=== PATIENT | female | born 1975 | race Caucasian/White ===

== ENCOUNTER 2022-11-01 11:35 | Outpatient (OUT) | payer OTHER, SELFPAY ==
--- NOTE | 2022-11-01 11:44 | MM_ITS ---
Patient: JENIFFER HUA Exam Date: 11/01/2022 : 1975 Gender:F Ordering : DR YESSENIA MUNOZ . Admission #: [id number] Family : Order #: [id number] CLICK HERE TO VIEW EXAM RADIOLOGY REPORT PROCEDURE: MM TOMOSYNTHESIS SCREENING BI COMPARISON: [facility] MAMM SCREEN 3D [facility]CTOR [facility]UEL CAD, 01/17/2021. MG MAMM SCREEN VICTOR MANUEL W CAD, 05/22/2018. INDICATIONS: Screening mammogram Z12.31 Calculator Name NCI Breast Cancer Risk Assessment Tool 5 Year Breast Cancer Risk 1.00% Lifetime Breast Cancer Risk 10.30% Personal Breast Cancer No Personal Ovarian Cancer No Treatments None Family Cancers None LOCATION: [facility] BREAST COMPOSITION: Scattered areas fibroglandular density. FINDINGS: DIAGNOSTIC CATEGORY 1--NEGATIVE. NO CHANGE FROM COMPARISON ASSESSMENT. Scattered benign-appearing nodules are present. Scattered benign-appearing calcifications are present. Scattered benign-appearing lymph nodes are present. RIGHT BREAST: No significant suspicious finding. LEFT BREAST: No significant suspicious finding. RECOMMENDATIONS: ROUTINE MAMMOGRAM AND CLINICAL EVALUATION IN 12 MONTHS. PLEASE NOTE: A NORMAL MAMMOGRAM DOES NOT EXCLUDE THE POSSIBILITY OF BREAST CANCER. A CLINICALLY SUSPICIOUS PALPABLE LUMP SHOULD BE BIOPSIED. Dictated by: Mahesh Navarro MD on 11/01/2022 at 15:38 Approved by: Mahesh Nvaarro MD on 11/01/2022 at 15:41
== END 2022-11-01 11:36 ==
LOC: MAMMO 11:38
PROVIDERS: PCP Family Medicine; Visit Provider Family Medicine
DX: Z12.31 Encounter for screening mammogram for malignant neoplasm of breast (principal)
CPT/HCPCS: 77063; 77067

== ENCOUNTER 2023-01-12 09:45 | Outpatient (OUT) | payer OTHER, SELFPAY ==
--- NOTE | 2023-01-12 09:48 | CT_ITS ---
The [address] [address] Patient Name: JENIFFER HUA MRN: [id number] date: 1975 Sex: F Assigned Patient Location: CT Current Patient Location: CT Accession/Order Number: [id number] Exam Date: 01/12/2023 09:52 Report Date: 01/12/2023 13:35 At the request of: NON-STAFF PHYSICIAN Procedure: CT chest wo con EXAM: CT chest wo con HISTORY: post op breast pain after breast reduction TECHNIQUE: No IV contrast Dose reduction techniques were achieved by using automated exposure control and/or adjustment of mA and/or kV according to patient size and/or use of iterative reconstruction technique. COMPARISON:None FINDINGS: THORACIC INLET: Unremarkable CHEST WALL/AXILLA: Fluid collection noted right lateral breast axial image 56 measures 40 x 31 mm. Fluid collection left lateral breast axial image 59 measures 29 x 16 mm. No axillary lymphadenopathy HEART: Heart size is normal. Thoracic aorta is normal. No aneurysm. No pericardial effusion MEDIASTINUM: No significant hilar or mediastinal lymphadenopathy PLEURAL CAVITY: No pleural effusion or thickening is noted. LUNGS: No lobar consolidation. No groundglass opacities. VISUALIZED UPPER ABDOMEN: Limited due to lack of intravenous contrast. Incidental cyst within the spleen axial image 80 measures 14 mm of fluid attenuation benign with no follow-up required BONES: No acute findings CT/CT chest wo con IMPRESSION:Fluid collections within the lateral aspects of the breast as described. Findings may relate to sterile or nonsterile collections. Clinical correlation suggested. Aspiration if indicated Electronically authenticated by: HEIDE PRAKASH Date: 01/12/2023 13:35
== END 2023-01-12 09:46 | disposition home or self-care (01) ==
LOC: CT 09:46
PROVIDERS: PCP Family Medicine
DX: N64.4 Mastodynia (principal); Z98.890 Other specified postprocedural states
CPT/HCPCS: 71250

== ENCOUNTER 2023-01-16 16:05 | Outpatient (OUT) | payer OTHER, SELFPAY ==
[2023-01-16 16:27] LABS: Basophils Absolute Auto 0.1 10^3/uL (0.0-0.1); Basophils Percent Auto 0.5 % (0.2-2.0); Eosinophils Absolute Auto 0.2 10^3/uL (0.0-0.7); Eosinophils Percent Auto 1.9 % (0.9-7.0); Hemoglobin 14.4 g/dL (12.0-16.0); Immature Granulocytes Abs Auto 0.05 10^3/uL (0.00-0.03); Immature Granulocytes Pct Auto 0.5 % (0.0-0.5); Lymphocytes Absolute Auto 2.3 10^3/uL (1.2-3.8); Lymphocytes Percent Auto 23.5 % (20.5-60.0); Mean Corpuscular HGB Conc 32.7 g/dL (29.9-35.2); Mean Corpuscular Hemoglobin 30.8 pg (26.7-34.0); Mean Corpuscular Volume 94.2 fL (81.0-99.0); Mean Platelet Volume 10.3 fL (9.5-13.5); Monocytes Absolute Auto 0.8 10^3/uL (0.3-0.8); Monocytes Percent Auto 7.9 % (1.7-12.0); Neutrophils Absolute Auto 6.5 10^3/uL (1.4-6.5); Neutrophils Percent Auto 65.7 % (43.0-75.0); Platelet Count 313 10^3/uL (150-450); Red Blood Count 4.67 10^6/uL (4.20-5.40); Red Cell Distribution Width 12.8 % (11.0-15.0); White Blood Count 9.9 10^3/uL (4.0-11.0)
[2023-01-16 16:44] LABS: Alanine Aminotransferase 28 U/L (14-59); Albumin Globulin Ratio 1.1; Albumin Level 4.1 g/dL (3.4-5.0); Alkaline Phosphatase 122 U/L (46-116); Anion Gap 14.4; Aspartate Amino Transferase 16 U/L (15-37); BUN Creatinine Ratio 18.3; Bilirubin Direct 0.1 mg/dL (0.0-0.2); Bilirubin Total 0.4 mg/dL (0.2-1.0); Calcium 9.2 mg/dL (8.5-10.1); Carbon Dioxide 25.4 mmol/L (21.0-32.0); Chloride 105 mmol/L (98-107); Estimated GFR (African America >60 (>=60); Estimated GFR (Non-African Ame >60 (>=60); Globulin 3.9 g/dL; Glucose 91 mg/dL (74-106); Phosphorus 3.9 mg/dL (2.6-4.7); Potassium 3.8 mmol/L (3.5-5.1); Sodium 141 mmol/L (136-145)
== END 2023-01-16 16:06 | disposition home or self-care (01) ==
PROVIDERS: PCP Family Medicine
DX: L03.313 Cellulitis of chest wall (principal)
CPT/HCPCS: 36415; 80069; 80076; 85025

== ENCOUNTER 2023-11-02 09:50 | Outpatient (OUT) | payer OTHER, SELFPAY ==
[2023-11-02 10:19] LABS: Basophils Absolute Auto 0.1 10^3/uL (0.0-0.1); Basophils Percent Auto 0.6 % (0.2-2.0); Eosinophils Absolute Auto 0.3 10^3/uL (0.0-0.7); Eosinophils Percent Auto 3.3 % (0.9-7.0); Hemoglobin 13.9 g/dL (12.0-16.0); Immature Granulocytes Abs Auto 0.04 10^3/uL (0.00-0.03); Immature Granulocytes Pct Auto 0.5 % (0.0-0.5); Lymphocytes Absolute Auto 2.3 10^3/uL (1.2-3.8); Mean Corpuscular HGB Conc 33.1 g/dL (29.9-35.2); Mean Corpuscular Volume 93.5 fL (81.0-99.0); Mean Platelet Volume 10.5 fL (9.5-13.5); Monocytes Absolute Auto 0.7 10^3/uL (0.3-0.8); Monocytes Percent Auto 7.3 % (1.7-12.0); Neutrophils Absolute Auto 5.5 10^3/uL (1.4-6.5); Neutrophils Percent Auto 62.3 % (43.0-75.0); Platelet Count 300 10^3/uL (150-450); Red Blood Count 4.49 10^6/uL (4.20-5.40); White Blood Count 8.9 10^3/uL (4.0-11.0)
[2023-11-02 10:53] LABS: Alanine Aminotransferase 28 U/L (14-59); Albumin Level 3.6 g/dL (3.4-5.0); Alkaline Phosphatase 104 U/L (46-116); Anion Gap 13.8; Aspartate Amino Transferase 17 U/L (15-37); BUN Creatinine Ratio 16.2; Bilirubin Total 0.5 mg/dL (0.2-1.0); Calcium 8.3 mg/dL (8.5-10.1); Carbon Dioxide 26.1 mmol/L (21.0-32.0); Chloride 105 mmol/L (98-107); Chol HDL Ratio 3.3; Cholesterol 180 mg/dL (<=200); Estimated GFR (African America >60 (>=60); Estimated GFR (Non-African Ame >60 (>=60); Free T3 2.54 pg/mL (2.18-3.98); Globulin 3.7 g/dL; Glucose 86 mg/dL (74-106); HDL Cholesterol 55 mg/dL (40-60); LDL Cholesterol Calculated 116.4 mg/dL; Potassium 3.9 mmol/L (3.5-5.1); Sodium 141 mmol/L (136-145); Thyroid Stimulating Hormone 1.492 uIU/mL (0.358-3.740); Total Protein 7.3 g/dL (6.4-8.2); Triglycerides 43 mg/dL (<=150); VLDL CHOLESTEROL 8.6 mg/dL
[2023-11-02 11:00] LABS: Estimated Average Glucose 97 mg/dL
== END 2023-11-02 09:51 | disposition home or self-care (01) ==
PROVIDERS: PCP Family Medicine; Visit Provider Family Medicine
DX: Z00.00 Encounter for general adult medical examination without abnormal findings (principal)
CPT/HCPCS: 36415; 80053; 80061; 83036; 83540; 84436; 84443; 84481; 85025